=== PATIENT | male | born 1980 | race Caucasian/White ===

== ENCOUNTER 2018-03-02 06:35 | Day surgery (SDC) | payer OTHER ==
[2018-03-02] MEDS ORDERED: CEFAZOLIN 1 GM INJ (07:00)
[2018-03-02] MEDS ORDERED: FENTAnyl 50 MCG/ML VIAL (08:49)
[2018-03-02] MEDS ORDERED: MIDAZOLAM 1 MG/ML 2 ML INJ (08:49)
[2018-03-02] MEDS ORDERED: NEOSTIGMINE 3 MG/3 ML SYRINGE (08:49)
[2018-03-02] MEDS ORDERED: PROPOFOL 20 ML (08:49)
[2018-03-02] MEDS ORDERED: ROCURONIUM 50 MG INJ (08:49)
[2018-03-02] MEDS ORDERED: LIDOCAINE 2% (SDV) 5 ML INJ (08:49)
[2018-03-02] MEDS ORDERED: GLYCOPYRROLATE 0.4 MG INJ (08:49)
[2018-03-02] MEDS ORDERED: DEXAMETHASONE 4 MG/ML 1 ML INJ (08:50)
[2018-03-02] MEDS ORDERED: ONDANSETRON 4 MG INJ (08:50)
[2018-03-02] MEDS ORDERED: LIDOCAINE 1%/EPI 30 ML INJ (09:28)
[2018-03-02] MEDS ORDERED: BUPIVACAINE 0.25% (MPF) 30 ML INJ (09:28)
[2018-03-02] MEDS ORDERED: HYDROmorphONE 1 MG/5 ML IV SYRINGE IV ×4 (10:52→11:00)
== END 2018-03-02 12:05 | disposition home or self-care (01) ==
LOC: SDS 06:35
DX: G56.02 Carpal tunnel syndrome, left upper limb (principal)
CPT/HCPCS: 64721; 87086